=== PATIENT | male | born 1995 | race Caucasian/White ===

== ENCOUNTER 2017-05-03 19:52 | Emergency (ER) | payer OTHER ==
--- NOTE | 2017-05-03 20:26 | ER Document Report ---
HPI - HPI Patient complains to provider of: right ankle and foot injury Pain Level: 3 Context: Patient is a 22-year-old male who comes emergency department for chief complaint of right ankle and foot pain. He states that almost 2 weeks ago he was hiking and wearing a boot when his foot slipped off a rock, twisted, and then he tumbled down. He states since that time he has had ongoing swelling and pain. He denies any other areas of injury or pain. He states he believes he has had an old fracture in his foot in the past. He denies any daily medications or medical problems. He is active duty. - DERM Skin Color: Normal Past Medical History - General Information source: Patient - Social History Smoking Status: Never Smoker Drug Abuse: None Lives with: Spouse/Significant other Family History: Reviewed & Not Pertinent Patient has suicidal ideation: No Patient has homicidal ideation: No - Medical History Medical History: Negative Renal/ Medical History: Denies: Hx Peritoneal Dialysis Surgical Hx: Negative - Immunizations Immunizations up to date: Yes Hx Diphtheria, Pertussis, Tetanus Vaccination: Yes Vertical Provider Document - CONSTITUTIONAL Exam Limitations: No Limitations General Appearance: WD/WN, No Apparent Distress - INFECTION CONTROL TRAVEL OUTSIDE OF THE [place] IN LAST 30 DAYS: No - HEENT HEENT: Atraumatic, Normocephalic - NECK Neck: Normal Inspection - RESPIRATORY Respiratory: Breath Sounds Normal, No Respiratory Distress O2 Sat by Pulse Oximetry: 97 - CARDIOVASCULAR Cardiovascular: Regular Rate, Regular Rhythm - GI/ABDOMEN Gastrointestinal: Abdomen Soft, Abdomen Non-Tender - BACK Back: Normal Inspection - MUSCULOSKELETAL/EXTREMETIES Musculoskeletal/Extremeties: Tender - Tenderness over both lateral and medial malleolus with mild soft tissue swelling of the right foot. No significant tenderness noted over the foot except for mild tenderness over the lateral dorsal aspect. Normal capillary refill and sensation. Patient can bear weight on the foot but with some tenderness. Normal tibia, knee, leg, hip exam. Course - Re-evaluation Re-evalutation: X-ray imaging consistent with avulsion fractures probably from the recent injury , patient does have some pain and some soft tissue swelling, as a result he will be given ankle stirrup, Wilson wrap, crutches, directions for this, referral to orthopedics. Discussed in detail with patient, provided copy of his reports and an image, patient states understanding and agreement. - Vital Signs Vital signs: Temp Pulse Resp BP Pulse Ox 97.8 F 74 16 128/54 H 97 05/03/17 19:55 05/03/17 19:55 05/03/17 19:55 05/03/17 19:55 05/03/17 19:55 Procedures - Immobilization right ankle Immobilizer type: Wilson wrap, Ankle stirrup Performed by: SHERRY Post-Proc Neuro Vasc Exam: Normal Alignment checked and good: Yes Discharge - Discharge Clinical Impression: Right ankle pain Qualifiers: Chronicity: acute Qualified Code(s): M25.571 - Pain in right ankle and joints of right foot Avulsion fracture of ankle Qualifiers: Encounter type: initial encounter Fracture type: closed Laterality: right Qualified Code(s): S82.891A - Other fracture of right lower leg, initial encounter for closed fracture Condition: Stable Disposition: HOME, SELF-CARE Additional Instructions: Your imaging and exam are consistent with an ankle avulsion fracture on both sides of the ankle. Because of the current swelling and pain I recommend elevation of the foot, ice 3-4 times a day, and crutches for the next 3 days along with the naproxen. Afterwards please be evaluated by Orthopedics (may need walking boot or similar treatment). [place] referral [place]. See additional instructions below. Return to the ED for any concerning symptoms. Avulsion fracture of the ankle There is a small chip fracture in your ankle. This fracture was caused by stretching the joint ligaments, which pulled off a small piece of bone. This injury is treated much the same as a severe sprain. At first, you should elevate, rest, and apply ice packs to the leg. Often , only an ankle brace or tape is necessary while the chip fracture heals. Sometimes a chip fracture of this type requires a cast or walking boot. The treatment plan may change, depending on how your ankle progresses. Chip fractures usually do not fuse back onto the bone, but rather scar down to the bone surface. You will most likely see this bone fragment on future x-rays. It's important that you follow the treatment program as outlined for now, then follow up for re-evaluation as scheduled. Call the doctor or return at once if pain or swelling becomes severe, or if you develop other unusual symptoms. Prescriptions: Naproxen 500 mg PO BID #20 tablet Referrals: JONG WOMACK MD [ACTIVE STAFF] - Follow up in 3-5 days
--- NOTE | 2017-05-03 20:58 | RADIOLOGY REPORT (SQ) ---
EXAM DESCRIPTION: FOOT RIGHT COMPLETE COMPLETED DATE/TIME: 05/03/2017 8:44 pm REASON FOR STUDY: injury, swelling, pain COMPARISON: None. NUMBER OF VIEWS: Three views. TECHNIQUE: AP, lateral and oblique radiographic images acquired of the right foot. LIMITATIONS: None. FINDINGS: MINERALIZATION: Normal. BONES: No acute fracture or dislocation. No worrisome bone lesions. Old healed stress change 2nd me tatarsal. JOINTS: No effusions. SOFT TISSUES: No soft tissue swelling. No foreign body. OTHER: No other significant finding. IMPRESSION: NO RADIOGRAPHIC EVIDENCE OF ACUTE INJURY. TECHNICAL DOCUMENTATION: JOB ID: [id number] [employer]- All Rights Reserved
--- NOTE | 2017-05-03 20:59 | RADIOLOGY REPORT (SQ) ---
EXAM DESCRIPTION: ANKLE RIGHT COMPLETE COMPLETED DATE/TIME: 05/03/2017 8:44 pm REASON FOR STUDY: injury, swelling, pain COMPARISON: None. NUMBER OF VIEWS: Three views. TECHNIQUE: AP, lateral, and oblique radiographic images acquired of the right ankle. LIMITATIONS: None. FINDINGS: MINERALIZATION: Normal. BONES: No acute fracture or dislocation. No worrisome bone lesions. Corticated bone fragments adjac ent to the medial and lateral malleoli compatible with chronic avulsion type injury. JOINTS: No effusions. SOFT TISSUES: No soft tissue swelling. No foreign body. OTHER: No other significant finding. IMPRESSION: CHRONIC POSTTRAUMATIC CHANGE ABOVE. NO RADIOGRAPHIC EVIDENCE OF ACUTE INJURY. TECHNICAL DOCUMENTATION: JOB ID: [id number] [employer]- All Rights Reserved
[2017-05-03 21:44] VITALS: BP 118/70
== END 2017-05-03 21:44 | disposition home or self-care (01) ==
LOC: ER 19:52
DX: S82.891A Other fracture of right lower leg, initial encounter for closed fracture (principal); W17.89XA Other fall from one level to another, initial encounter; Y93.01 Activity, walking, marching and hiking
CPT/HCPCS: 99283; 73610; 73630; L1902